=== PATIENT | female | born 1945 | race Caucasian/White ===

== ENCOUNTER 2017-07-24 08:48 | Outpatient (CLI) | payer MEDICARE, BC ==
--- NOTE | 2017-07-24 10:28 | MRI ---
MRI OF THE LUMBAR SPINE: DATE: 07/24/17. PROVIDED CLINICAL HISTORY: Bilateral leg pain. FINDINGS: Comparison is made with the study dated 09/24/16. Five lumbar vertebral bodies are again assumed. Marlyn mbar alignment appears unchanged with slight anterolisthesis of L4 on L5. Vertebral body heights are maintained. No focal concerning regional marrow signal abnormality is apparent. Heterogeneous lelia ow signal on the basis of senescent change. Postoperative changes involving the L45 are again noted. The conus medullaris is normal in signal and terminates at an appropriate level. The nerve roots o f the cauda equina appear clumped, and the more distal caudal lumbar nerve roots appear somewhat anne pherally displaced, both of which are new findings with respect to the prior study and suggest arachn oiditis. At L1-2, there is a broad-based disk bulge and bilateral facet arthritis without significant central canal or foraminal narrowing apparent. At L2-3, there is a broad-based disk bulge and bilateral facet arthritis without significant central canal stenosis apparent. There is mild right foraminal narrowing. At L3-4, there is a broad-based disk bulge and bilateral facet arthritis. There ids disk space narro wing and end plate degenerative change. There is mild right foraminal narrowing. There is no signif icant central canal or left foraminal narrowing. At L4-5, there is a broad-based disk bulge and bilateral facet arthritis. There is moderate left for aminal narrowing. There is no significant central canal or right foraminal narrowing apparent. At L5-S1, there is a broad-based disk bulge and bilateral facet arthritis. There is no significant c entral canal stenosis apparent. There is moderate left foraminal narrowing. There is no significant right foraminal narrowing apparent. IMPRESSION: Postoperative and degenerative changes of the lumbar spine as described above, in general appearing s table with respect to the prior study. However, interval changes suggesting arachnoiditis as describ ed above. POS: MARY
== END 2017-07-24 08:49 | disposition home or self-care (01) ==
LOC: TBSIIMAG 08:48
PROVIDERS: ATTEND Surgery
DX: M47.26 Other spondylosis with radiculopathy, lumbar region (principal)
CPT/HCPCS: 72148

== ENCOUNTER 2018-11-23 15:26 | Outpatient (CLI) | payer MEDICARE, BC ==
--- NOTE | 2018-11-24 07:14 | CT ---
CT OF THE LEFT ANKLE WITHOUT CONTRAST: INDICATION: Left ankle arthritis. COMPARISON: None. FINDINGS: The tibiotalar and posterior subtalar joint appears relatively well preserved. There is moderate heydi onavicular osteoarthrosis with subchondral cystic-type abnormalities seen within the talar head. The visualized aspects of the Lisfranc alignment appear within normal limits. Very mild degenerative ch beverly is seen involving the calcaneal cuboid joint. Soft tissues of the left ankle appear relatively well maintained. There is a mild suspected joint effusion involving the talonavicular joint. IMPRESSION: 1. 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 2. The tibiotalar and posterior subtalar joints appear within normal limits. 3. Mild calcaneal cuboid osteoarthrosis. 4. No acute fracture or subluxation demonstrated. POS: BH
== END 2018-11-23 15:27 | disposition home or self-care (01) ==
LOC: BICCT 15:26
PROVIDERS: ATTEND Orthopaedic Surgery
DX: M19.072 Primary osteoarthritis, left ankle and foot (principal)

== ENCOUNTER 2019-04-25 16:48 | Outpatient (CLI) | payer MEDICARE, BC ==
--- NOTE | 2019-04-25 18:24 | CT ---
EXAM: CT Lower Ext Lt WO Con DATE: 04/25/2019 12:00 AM INDICATION: Arthrodesis malunion COMPARISON: CT of the left hindfoot dated November 23, 2018 FINDING: Since the comparison examination there has been interval arthrodesis performed of the sara avicular articulation. The arthrodesis appears incompletely fused. There are portions of suspected bridging bone seen along the lateral aspect of the talonavicular joint most prominent on coronal imag e 29 and sagittal image 23. The arthrodesis instrumentation appears intact without overt evidence of loosening. There is very mild calcaneocuboid osteoarthrosis. Tibiotalar joint appears within yessy l limits. There is moderate enthesopathic change off the posterior and plantar calcaneus. There is mild soft tissue edema seen involving the ankle, hindfoot and dorsal aspect of the midfoot. No large drainable fluid collection is grossly evident. IMPRESSION: 1. Incomplete fusion of the talonavicular arthrodesis. Portions of osseous incorporation are suspecte d along the lateral aspect of the talonavicular articulation as indicated above. Arthrodesis hardware appears intact without evidence of loosening.
== END 2019-04-25 16:49 | disposition home or self-care (01) ==
LOC: RAD 16:48
PROVIDERS: ATTEND Orthopaedic Surgery
DX: T84.498D Other mechanical complication of other internal orthopedic devices, implants and grafts, subsequent encounter (principal)

== ENCOUNTER 2019-08-30 14:23 | Outpatient (CLI) | payer MEDICARE, BC ==
--- NOTE | 2019-08-30 15:37 | CT ---
CT LUMBAR SPINE WITHOUT CONTRAST: INDICATIONS: Disc disorder with radiculopathy COMPARISON: MRI lumbar spine dated July 24, 2017 TECHNIQUE: Multiple CT images were obtained of the lumbar spine without contrast. Axial, coronal, and sagittal r eformatted images were constructed from the raw data. FINDINGS: Visualized retroperitoneal and paravertebral soft tissues: There are mild vascular calcifications see n involving the visualized vasculature. No pathologically enlarged lymph nodes are evident. Spinal alignment: There is a stable levoscoliosis centered at L3-4. Spinal instrumentation or postsurgical change: There is a dorsal column stimulator entering the epidu ral space on the left at T12-L1 and T11-T12. At L5-S1, there is a left unilateral pars defect at L5. There is loss of the normal disc space height . There is a broad-based disc osteophyte complex with facet hypertrophy. There is mild/moderate right and moderate left neural foraminal narrowing. This appears to mildly progressed from the compar clarissa MR examination.. At L4-5, there is a broad-based disc osteophyte complex with facet hypertrophy inducing mild to moder ate left neural foraminal narrowing which is stable. At L3-4, there is no appreciable central canal or neuroforaminal narrowing. At L2-3, there is a mild broad-based disc bulge but no appreciable central canal or neural foraminal narrowing At L1-L2, there is no appreciable central canal or neuroforaminal narrowing. At T12-L1, there is no appreciable central canal or neuroforaminal narrowing. IMPRESSION: 1. Suggestion of worsening [id number] right and moderate left neural foraminal narrowing at L5 -S1. 2. Stable [id number] left neural foraminal narrowing at L4-5. 3. Dorsal column stimulator
--- NOTE | 2019-08-30 15:42 | CT ---
Exam: Left foot CT scan without IV contrast: HISTORY: Arthrodesis malunion, arthritis of mid tarsal joint COMPARISON: 04/25/2019 FINDINGS: Again noted are postop fusion and arthrodesis changes involving the talonavicular joint with partial but incomplete fusion. No evidence for malalignment. No acute fracture. IMPRESSION: Partial fusion of the talonavicular joint following arthrodesis. Little change from prior exam.
== END 2019-08-30 14:24 | disposition home or self-care (01) ==
LOC: BICCT 14:23
PROVIDERS: ATTEND Nurse Practitioner Family
DX: M51.16 Intervertebral disc disorders with radiculopathy, lumbar region (principal); M19.072 Primary osteoarthritis, left ankle and foot; T84.498D Other mechanical complication of other internal orthopedic devices, implants and grafts, subsequent encounter; M48.061 Spinal stenosis, lumbar region without neurogenic claudication; Z98.1 Arthrodesis status; Z96.9 Presence of functional implant, unspecified
CPT/HCPCS: 72131

== ENCOUNTER 2021-10-30 15:13 | Outpatient (CLI) | payer MEDICARE, BC | END 2021-10-30 15:14 | disposition home or self-care (01) | LOC: BICCT 15:13 | PROVIDERS: ATTEND Specialist | DX: M47.22 Other spondylosis with radiculopathy, cervical region (principal); M43.12 Spondylolisthesis, cervical region | CPT/HCPCS: 72050; 72125 ==

== ENCOUNTER 2022-07-06 18:20 | Inpatient (IN) | payer MEDICARE, BC ==
[2022-07-06] MEDS ORDERED: Acetaminophen 325 MG TAB PO PRN (23:01)
[2022-07-06] MEDS ORDERED: Bisacodyl 5 MG TAB PO PRN (23:01)
[2022-07-06] MEDS ORDERED: Guaifenesin DM 100-10/5 ML UDCUP PO PRN (23:02)
[2022-07-06] MEDS ORDERED: Bisacodyl 10 MG SUPP PR PRN (23:02)
[2022-07-06] MEDS ORDERED: Ipratropium/Albuterol 3 ML NEB NEB PRN (23:04)
[2022-07-06] MEDS ORDERED: Ondansetron ODT 4 MG TAB PO PRN (23:04)
[2022-07-06] MEDS ORDERED: Senokot S 8.6-50 MG TAB PO PRN (23:04)
[2022-07-06] MEDS: Sodium Chloride 0.9% 1,000 ML IV SCH (23:15)
[2022-07-07] MEDS ORDERED: Ondansetron PF 4 MG/2 ML Vial IVP PRN (00:40)
[2022-07-07] MEDS ORDERED: Vancomycin Dose by Levels Sliding Scale (Wt <71) FS SCH (00:45)
[2022-07-07] MEDS: Cefepime 1 GM in Sodium Chloride 0.9% 100 ML IVPB SCH ×3 (01:17→23:06)
[2022-07-07] MEDS ORDERED: VANCOMYCIN 1.25 GM/250 ML BAG 1.25 GM in Premix Bag 1 BAG IVPB SCH (03:00)
[2022-07-07 04:33] VITALS: BMI 27.0
[2022-07-07 05:16] LABS: ALT (SGPT) 92 U/L (8-55); AST (SGOT) 113 U/L (5-34); Albumin 2.5 g/dL (3.4-4.8); Alkaline Phosphatase 220 U/L (40-110); Anion Gap 12 mmol/L (10-20); BUN (Urea Nitrogen) 15 mg/dL (9.8-20.1); Bilirubin, Total 0.9 mg/dL (0.2-1.2); Calc. Creatinine Clearance 59 mL/min (70-130); Carbon Dioxide 22 mmol/L (23-31); Chloride 110 mmol/L (98-107); Estimated GFR 69; Globulin 3.1 g/dL (2.4-3.5); Glucose 94 mg/dL (83-110); Potassium 3.4 mmol/L (3.5-5.1); Protein, Total 5.6 g/dL (5.8-8.1); Sodium 141 mmol/L (136-145)
[2022-07-07 05:39] LABS: Band 8 % (5-11); Hemoglobin 9.6 g/dL (12.0-16.0); Hypochromia SLIGHT = 6-15 cells (100X) (0-5/hpf); Lymphocytes 8 % (21-51); MDiff Complete? YES; Macrocytosis SLIGHT = 6-15 cells (100X) (0-5/hpf); Mean Corpuscular HGB CONC 31.7 g/dL (32.0-36.0); Mean Corpuscular Hemoglobin 31.3 pg (27.0-31.0); Mean Corpuscular Volume 98.7 fl (78.0-98.0); Mean Platelet Volume 8.2 fL (7.4-10.4); Metamyelocyte 1 % (0-0); Monocytes 2 % (0-10); Myelocyte 2 % (0-0); Neutrophil 78 % (42-75); Platelet Count 340 10x3/uL (130-400); Platelet Morphology Comment Appears Adequate; Polychromasia SLIGHT = 2-3 cells (100X) (0-2/hpf); RBC Distribution Width 13.5 % (11.5-14.5); Reactive Lymphocytes 1 % (0-10); Red Blood Cell (RBC) Count 3.06 mill/uL (4.20-5.40); Target Cells SLIGHT = 2-5 cells (100X) (0-1/hpf); White Blood Cell (WBC) Count 19.8 10x3/uL (4.8-10.8)
[2022-07-07 05:46] LABS: HBCM Index 0.07 S/CO (0-0.79); HBSAg Index 0.25 S/CO (0-0.99); Hep A IgM AB Non-Reactive (NonReactive); Hep A IgM S/CO 0.16 S/CO (0-0.79); Hep B Surf Ag Non-Reactive S/CO (NonReactive); Hep C IgG Ab Non-Reactive (NonReactive); Hep C Index 0.07 S/CO (0-0.79); Hepatitis B Core IgM Abs Non-Reactive (NonReactive); Thyroid Stimulating Hormone 1.6073 uIU/mL (0.35-4.94)
[2022-07-07] MEDS: Levothyroxine Sodium 112 MCG TAB PO SCH (06:01)
[2022-07-07] MEDS: Magnesium 2 GM/50 ML(in water) 2 GM in Premix Bag 1 BAG IVPB SCH ×2 (06:01→08:58)
[2022-07-07] MEDS: Allopurinol 100 MG TAB PO SCH (08:57)
[2022-07-07] MEDS: Amlodipine 10 MG TAB PO SCH (08:57)
[2022-07-07] MEDS: Atorvastatin Calcium 40 MG TAB PO SCH (08:58)
[2022-07-07] MEDS ORDERED: Vancomycin 1 GM in Premix Bag 1 BAG IVPB SCH (09:00)
[2022-07-07] MEDS ORDERED: Magnesium Sulfate 4 GM in Sodium Chloride 0.9% 250 ML 250 ML IVPB SCH (09:15)
[2022-07-07] MEDS ORDERED: Lidocaine 1% PF 5 ML VIAL ONE (10:44)
[2022-07-07] MEDS ORDERED: Sodium Bicarbonate 2.5 MEQ/5 ML VIAL ONE (10:44)
[2022-07-07] MEDS: Sodium Chloride 0.9% 1,000 ML IV SCH ×2 (12:36→23:06)
[2022-07-07] MEDS ORDERED: cefTRIAXone\\ROCEPHIN 2 GM in Sodium Chloride 0.9% 100 ML IVPB SCH (16:00)
[2022-07-07] MEDS ORDERED: Azithromycin 500 MG in Sodium Chloride 0.9% 250 ML 250 ML IVPB SCH (18:00)
[2022-07-07] MEDS: DULoxetine 30 MG CAP PO SCH (20:32)
[2022-07-07] MEDS: oxyCODONE/Acetaminophen 5 mg/325 mg Tablet PO PRN (21:59)
[2022-07-08 02:30] LABS: INR-International Normal Ratio 1.2; Prothrombin Time 15.2 sec (12.0-14.7); Vancomycin, Random 10.6 ug/mL (See Comment)
[2022-07-08 02:49] LABS: Band 14 % (5-11); Hemoglobin 9.8 g/dL (12.0-16.0); Hypochromia SLIGHT = 6-15 cells (100X) (0-5/hpf); Lymphocytes 10 % (21-51); MDiff Complete? YES; Mean Corpuscular HGB CONC 33.6 g/dL (32.0-36.0); Mean Corpuscular Hemoglobin 33.4 pg (27.0-31.0); Mean Corpuscular Volume 99.2 fl (78.0-98.0); Mean Platelet Volume 7.9 fL (7.4-10.4); Monocytes 3 % (0-10); Neutrophil 73 % (42-75); Platelet Count 361 10x3/uL (130-400); Platelet Morphology Comment Appears Adequate; RBC Distribution Width 13.5 % (11.5-14.5); Red Blood Cell (RBC) Count 2.93 mill/uL (4.20-5.40); White Blood Cell (WBC) Count 16.3 10x3/uL (4.8-10.8)
[2022-07-08 02:55] LABS: ALT (SGPT) 87 U/L (8-55); AST (SGOT) 108 U/L (5-34); Albumin 2.3 g/dL (3.4-4.8); Alkaline Phosphatase 204 U/L (40-110); Anion Gap 12 mmol/L (10-20); BUN (Urea Nitrogen) 14 mg/dL (9.8-20.1); Bilirubin, Total 0.9 mg/dL (0.2-1.2); Calc. Creatinine Clearance 61 mL/min (70-130); Calcium 8.4 mg/dL (7.8-10.44); Carbon Dioxide 24 mmol/L (23-31); Chloride 108 mmol/L (98-107); Estimated GFR 72; Globulin 3.3 g/dL (2.4-3.5); Glucose 85 mg/dL (83-110); Magnesium 1.8 mg/dL (1.6-2.6); Potassium 3.7 mmol/L (3.5-5.1); Protein, Total 5.6 g/dL (5.8-8.1); Sodium 140 mmol/L (136-145)
[2022-07-08] MEDS: Levothyroxine Sodium 112 MCG TAB PO SCH (05:13)
[2022-07-08] MEDS: oxyCODONE/Acetaminophen 5 mg/325 mg Tablet PO PRN ×2 (06:36→20:16)
[2022-07-08] MEDS: Atorvastatin Calcium 40 MG TAB PO SCH (08:34)
[2022-07-08] MEDS: Allopurinol 100 MG TAB PO SCH (08:34)
[2022-07-08] MEDS: Amlodipine 10 MG TAB PO SCH (08:34)
[2022-07-08] MEDS ORDERED: Iopamidol-370 76% 500 ML 1 ML ONE (09:04)
[2022-07-08] MEDS: Cefepime 1 GM in Sodium Chloride 0.9% 100 ML IVPB SCH (12:27)
[2022-07-08] MEDS: Sodium Chloride 0.9% 1,000 ML IV SCH (12:28)
[2022-07-08] MEDS ORDERED: Furosemide 40 MG/4 ML VIAL SLOW IVP SCH (16:30)
[2022-07-08] MEDS: DULoxetine 30 MG CAP PO SCH (20:18)
[2022-07-08] MEDS: Famotidine 20 MG TAB PO SCH (21:44)
[2022-07-09] MEDS: Levothyroxine Sodium 112 MCG TAB PO SCH (05:58)
[2022-07-09] MEDS: HYDROcodone/Acetaminophen 10/325 mg Tablet PO PRN ×2 (05:58→22:03)
[2022-07-09] MEDS: Amlodipine 10 MG TAB PO SCH ×2 (07:11→07:24)
[2022-07-09] MEDS: Famotidine 20 MG TAB PO SCH ×2 (07:11→20:31)
[2022-07-09] MEDS: Atorvastatin Calcium 40 MG TAB PO SCH (07:11)
[2022-07-09] MEDS: Allopurinol 100 MG TAB PO SCH (07:11)
[2022-07-09 07:46] LABS: ALT (SGPT) 64 U/L (8-55); AST (SGOT) 69 U/L (5-34); Albumin 2.6 g/dL (3.4-4.8); Alkaline Phosphatase 175 U/L (40-110); Anion Gap 11 mmol/L (10-20); BUN (Urea Nitrogen) 12 mg/dL (9.8-20.1); Bilirubin, Total 0.5 mg/dL (0.2-1.2); Calc. Creatinine Clearance 50 mL/min (70-130); Calcium 8.4 mg/dL (7.8-10.44); Carbon Dioxide 26 mmol/L (23-31); Chloride 106 mmol/L (98-107); Estimated GFR 57; Glucose 70 mg/dL (83-110); Iron 56 ug/dL (50-170); Iron Binding Capacity, Total 141 mcg/dL (265-497); Potassium 3.4 mmol/L (3.5-5.1); Protein, Total 5.6 g/dL (5.8-8.1); Sodium 140 mmol/L (136-145)
[2022-07-09 08:17] LABS: HBCM Index 0.06 S/CO (0-0.79); Hep A IgM AB Non-Reactive (NonReactive); Hep A IgM S/CO 0.19 S/CO (0-0.79); Hep B Surf Ag Non-Reactive S/CO (NonReactive); Hep C IgG Ab Non-Reactive (NonReactive); Hepatitis B Core IgM Abs Non-Reactive (NonReactive)
[2022-07-09 08:27] LABS: Hemoglobin 9.3 g/dL (12.0-16.0); Mean Corpuscular HGB CONC 31.5 g/dL (32.0-36.0); Mean Corpuscular Hemoglobin 31.4 pg (27.0-31.0); Mean Corpuscular Volume 99.5 fl (78.0-98.0); Mean Platelet Volume 7.9 fL (7.4-10.4); Platelet Count 406 10x3/uL (130-400); RBC Distribution Width 13.5 % (11.5-14.5); Red Blood Cell (RBC) Count 2.97 mill/uL (4.20-5.40); White Blood Cell (WBC) Count 12.8 10x3/uL (4.8-10.8)
[2022-07-09 08:42] LABS: Ferritin 4108.46 ng/mL (10-291)
[2022-07-09 11:03] LABS: Band 12 % (5-11); Eosinophils 1 % (0-10); Lymphocytes 16 % (21-51); MDiff Complete? YES; Metamyelocyte 4 % (0-0); Monocytes 4 % (0-10); Myelocyte 7 % (0-0); Neutrophil 56 % (42-75); Platelet Morphology Comment Appears Increased; Polychromasia SLIGHT = 2-3 cells (100X) (0-2/hpf); Toxic Granulation SLIGHT
[2022-07-09] MEDS: DULoxetine 30 MG CAP PO SCH (20:31)
[2022-07-10] MEDS: Levothyroxine Sodium 112 MCG TAB PO SCH (05:24)
[2022-07-10] MEDS: Atorvastatin Calcium 40 MG TAB PO SCH (07:52)
[2022-07-10] MEDS: Allopurinol 100 MG TAB PO SCH (07:52)
[2022-07-10] MEDS: Famotidine 20 MG TAB PO SCH (07:52)
[2022-07-10] MEDS: oxyCODONE/Acetaminophen 5 mg/325 mg Tablet PO PRN (07:53)
[2022-07-10] MEDS: Amlodipine 10 MG TAB PO SCH (07:53)
[2022-07-10 08:11] VITALS: TEMP 97.8
[2022-07-10] MEDS ORDERED: FLU VACC QS2022-23(65YR UP)/PF 240 MCG/0.7 ML SYRINGE IM ONE (09:00)
[2022-07-10 12:28] VITALS: BP 104/59
== END 2022-07-10 12:41 | disposition swing bed (61) | DRG 871 ==
LOC: T4-A 18:20
PROVIDERS: ADMIT Family Medicine; ATTEND Internal Medicine
DX: A41.9 Sepsis, unspecified organism (principal); J18.9 Pneumonia, unspecified organism; J96.01 Acute respiratory failure with hypoxia; N17.9 Acute kidney failure, unspecified; I12.9 Hypertensive chronic kidney disease with stage 1 through stage 4 chronic kidney disease, or unspecified chronic kidney disease; E78.5 Hyperlipidemia, unspecified; E03.9 Hypothyroidism, unspecified; K21.9 Gastro-esophageal reflux disease without esophagitis; N18.30 Chronic kidney disease, stage 3 unspecified; D63.1 Anemia in chronic kidney disease; Z88.5 Allergy status to narcotic agent; Z88.1 Allergy status to other antibiotic agents; Z88.2 Allergy status to sulfonamides; Z88.8 Allergy status to other drugs, medicaments and biological substances; Z79.890 Hormone replacement therapy; Z90.710 Acquired absence of both cervix and uterus; Z87.891 Personal history of nicotine dependence
CPT/HCPCS: 36415; 74177; 76604; 80053; 80074; 80202; 80307; 82103; 82105; 82140; 82378; 82390; 82728; 82977; 83516; 83540; 83550; 83735; 83880; 84443; 85025; 85610; 86015; 86038; 86225; 86301; 87081; 87804; 93005; 93010; 93306; J0692; J1650; J1940; J1956; J2405; J3370; J3475; J3490; J7050; Q0162; Q9967

== ENCOUNTER 2024-08-10 08:39 | Outpatient (CLI) | payer MEDICARE | END 2024-08-10 08:40 | disposition home or self-care (01) | LOC: SCSMRI 08:39 | PROVIDERS: ATTEND Nurse Practitioner Family | DX: M50.121 Cervical disc disorder at C4-C5 level with radiculopathy (principal); M48.02 Spinal stenosis, cervical region; R60.0 Localized edema | CPT/HCPCS: 72141; 76014; 76018 ==